=== PATIENT | male | born 1960 | race Caucasian/White ===

== ENCOUNTER → 2017-12-01 | Outpatient (CLI) | payer OTHER ==
[~2017-12-01] MED LIST: ACIDOPHILUS1 EAC4 PO; ANCEF 1GM1 GM/50 M2 IV; ASPIR-TRIN325 MG PO; ASPIRIN325 PO; COLACE100 MG PO; ELIQUIS2.5 MG PO; HYDROCODONE-AP1 EAC6 PO; LASIX 20 MG TAB20 MG PO; OXYCODONE HCL 55 MG PO; OXYCODONE HCL5 MG PO; PERCOCET PO; POTASSIUM20 PO; TRIAMCINOLONE A80 G2 TOP; TYLENOL325 MG PO; XARELTO10 MG PO; [UNRECOGNIZED DRUG - SUPPLY] TOP
[2017-12-01 16:54] LABS: ABSOLUTE LYMPHOCYTES 1.9 thou/uL (0.8-5.3); MCHC 33.2 g/dL (28.0-37.0)
[2017-12-01 16:56] LABS: ABSOLUTE BASOPHILS 0.1 thou/uL (0.0-0.2); ABSOLUTE EOSINOPHILS 0.3 thou/uL (0.0-0.7); ABSOLUTE MONOCYTES 0.7 thou/uL (0.0-1.2); ABSOLUTE NEUTROPHILS 3.9 thou/uL (1.6-8.1); BASOPHILS 1.2 %; EOSINOPHILS 4.9 %; HEMATOCRIT 38.4 % (42.0-52.0); HEMOGLOBIN 12.7 gm/dL (14.0-18.0); LYMPHOCYTES 27.8 %; MCH 28.7 pg (26.0-34.0); MCV 86.5 fL (80.0-100.0); MONOCYTES 9.7 %; MPV 7.9 fl. (7.2-11.1); NUCLEATED RBCS 0 /100WBC; PLATELET COUNT* 232 thou/uL (150-400); POLYS 56.4 %; RBC 4.44 mil/uL (4.50-6.00); RDW-CV 14.8 % (10.5-14.5)
[2017-12-01 17:01] LABS: CALCIUM 8.5 mg/dL (8.5-10.1); CREATININE 0.8 mg/dL (0.6-1.3); POTASSIUM 4.2 mmol/L (3.5-5.1)
--- NOTE | 2017-12-01 17:09 | NUR ---
ARRIVED AMBULATORY WITH WALKER. MADE SELF COMFORTABLE PICC LINE NOTED TO RIGHT UPPER ARM. DRESSING PEELING FROM UPPER RIGHT CORNER BUT STILL OCCLUSIVE. DRESSING CHANGED PER POLICY AND LABS DRAWN PER ORDER. 21 INCH EXTENTION TUBING CHANGED SO PT CAN SELF ADMINISTER HOME ATB. TOLERATED WELL. DENIES QUESTIONS OR NEEDS AT DISCHARGE.
[2017-12-01 18:03] LABS: ESR (SEDRATE) 30 mm/hr (0-20)
== END ==
LOC: M.INFUS 15:58
PROVIDERS: Specialist
DX: T84.53XD Infection and inflammatory reaction due to internal right knee prosthesis, subsequent encounter (principal); X58.XXXD Exposure to other specified factors, subsequent encounter

== ENCOUNTER → 2017-12-07 | Outpatient (CLI) | payer OTHER ==
[2017-12-07 12:49] LABS: ABSOLUTE BASOPHILS 0.1 thou/uL (0.0-0.2); ABSOLUTE EOSINOPHILS 0.2 thou/uL (0.0-0.7); ABSOLUTE MONOCYTES 0.7 thou/uL (0.0-1.2); ABSOLUTE NEUTROPHILS 4.4 thou/uL (1.6-8.1); BASOPHILS 1.1 %; EOSINOPHILS 2.9 %; HEMOGLOBIN 12.8 gm/dL (14.0-18.0); LYMPHOCYTES 27.5 %; MCH 29.2 pg (26.0-34.0); MCHC 33.8 g/dL (28.0-37.0); MCV 86.3 fL (80.0-100.0); MONOCYTES 9.3 %; MPV 7.8 fl. (7.2-11.1); NUCLEATED RBCS 0 /100WBC; PLATELET COUNT* 230 thou/uL (150-400); POLYS 59.2 %; RDW-CV 15.3 % (10.5-14.5); WBC 7.4 thou/uL (4.0-11.0)
[2017-12-07 12:55] LABS: CALCIUM 8.8 mg/dL (8.5-10.1); CREATININE 0.7 mg/dL (0.6-1.3); POTASSIUM 3.8 mmol/L (3.5-5.1)
[2017-12-07 13:51] LABS: ESR (SEDRATE) 32 mm/hr (0-20)
== END ==
LOC: M.INFUS 06:10
PROVIDERS: Specialist
DX: T84.53XD Infection and inflammatory reaction due to internal right knee prosthesis, subsequent encounter (principal); X58.XXXD Exposure to other specified factors, subsequent encounter

== ENCOUNTER → 2017-12-15 | Outpatient (CLI) | payer OTHER ==
[2017-12-15 18:02] LABS: ABSOLUTE EOSINOPHILS 0.2 thou/uL (0.0-0.7); ABSOLUTE LYMPHOCYTES 2.1 thou/uL (0.8-5.3); ABSOLUTE MONOCYTES 0.7 thou/uL (0.0-1.2); ABSOLUTE NEUTROPHILS 2.8 thou/uL (1.6-8.1); BASOPHILS 0.5 %; HEMATOCRIT 40.8 % (42.0-52.0); HEMOGLOBIN 13.6 gm/dL (14.0-18.0); LYMPHOCYTES 35.6 %; MCH 28.7 pg (26.0-34.0); MCHC 33.4 g/dL (28.0-37.0); MCV 86.1 fL (80.0-100.0); MONOCYTES 11.6 %; MPV 7.9 fl. (7.2-11.1); NUCLEATED RBCS 0 /100WBC; PLATELET COUNT* 241 thou/uL (150-400); POLYS 48.3 %; RBC 4.74 mil/uL (4.50-6.00); WBC 5.9 thou/uL (4.0-11.0)
[2017-12-15 18:09] LABS: CALCIUM 8.9 mg/dL (8.5-10.1); CREATININE 0.8 mg/dL (0.6-1.3)
--- NOTE | 2017-12-15 18:10 | NUR ---
PT ARRIVED FOR OUTPT PICC LINE DRESSING CHANGE AND LAB DRAW. ORDERS NOTED. LABS OBTAINED FROM RIGHT AC PICC LINE. DRESSING CHANGED TO PICC LINE. DISMISSED HOME IN GOOD CONDITION, USING WALKER.
[2017-12-15 19:07] LABS: ESR (SEDRATE) 18 mm/hr (0-20)
== END ==
LOC: M.INFUS 06:51
PROVIDERS: Specialist
DX: T84.53XD Infection and inflammatory reaction due to internal right knee prosthesis, subsequent encounter (principal)

== ENCOUNTER → 2017-12-21 | Outpatient (CLI) | payer OTHER ==
[2017-12-21 14:01] LABS: ABSOLUTE EOSINOPHILS 0.1 thou/uL (0.0-0.7); ABSOLUTE LYMPHOCYTES 2.3 thou/uL (0.8-5.3); ABSOLUTE MONOCYTES 0.5 thou/uL (0.0-1.2); ABSOLUTE NEUTROPHILS 3.8 thou/uL (1.6-8.1); BASOPHILS 0.7 %; EOSINOPHILS 1.3 %; HEMOGLOBIN 13.2 gm/dL (14.0-18.0); LYMPHOCYTES 33.9 %; MCH 28.8 pg (26.0-34.0); MCV 87.3 fL (80.0-100.0); MONOCYTES 7.6 %; MPV 7.9 fl. (7.2-11.1); NUCLEATED RBCS 0 /100WBC; PLATELET COUNT* 250 thou/uL (150-400); POLYS 56.5 %; RBC 4.58 mil/uL (4.50-6.00); RDW-CV 14.8 % (10.5-14.5); WBC 6.7 thou/uL (4.0-11.0)
[2017-12-21 14:41] LABS: CALCIUM 8.8 mg/dL (8.5-10.1); CREATININE 0.8 mg/dL (0.6-1.3); POTASSIUM 4.2 mmol/L (3.5-5.1)
[2017-12-21 15:01] LABS: ESR (SEDRATE) 9 mm/hr (0-20)
--- NOTE | 2017-12-21 16:32 | NUR ---
ARRIVED AMBULATORY WITH WALKER. MADE SELF COMFORTABLE IN RECLINER. LABS DRWN FROM PICC PER PROTOCOL. DR. RENEE HERE IN INFUSION TO SEE PT. NEW ORDER RECIEVED TO D/C PICC LINE AND WEEKLY LABS. PT VOICED UNDERSTANDING AND AGREED. LINE REMOVED PER PROTOCOL. POST CARE REVIEWED. DENEIS NEEDS AT DISCHARGE.
--- NOTE | 2017-12-22 10:51 | CON ---
[address] [address] CONSULTATION Name: KOMAL SNOWDEN Room: [facility]#: [id number] Admission: 12/21/17 Attend Phys: Hilton Colin MD Discharge: Date of : 56 Report #: [id number] THIS REPORT FOR: //name// CC: Roderick Colin DATE OF SERVICE: 12/21/2017 ATTENDING PHYSICIAN: Dr. Allen. This is a 57-year-old patient of Dr. Allen. 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 He completed a course of therapy. He has been doing well for the past 3 weeks off antibiotics. He was seen by Dr. Allen in followup who has tentatively scheduled to re-implant the knee mid to latter part of December. At this point, would go ahead and remove the PICC line. He is to call if problems or concerns. <ELECTRONICALLY SIGNED> By: Hilton Colin MD 12/22/17 1051 [id number] [id number] Colin MD /nt
== END ==
LOC: M.INFUS 04:22
PROVIDERS: Specialist
DX: T84.53XD Infection and inflammatory reaction due to internal right knee prosthesis, subsequent encounter (principal)

== ENCOUNTER 2018-01-27 09:02 | Inpatient (IN) | payer OTHER ==
[2018-01-24 16:19] LABS: ABSOLUTE BASOPHILS 0.1 thou/uL (0.0-0.2); ABSOLUTE EOSINOPHILS 0.2 thou/uL (0.0-0.7); ABSOLUTE LYMPHOCYTES 2.1 thou/uL (0.8-5.3); ABSOLUTE MONOCYTES 0.5 thou/uL (0.0-1.2); ABSOLUTE NEUTROPHILS 4.9 thou/uL (1.6-8.1); BASOPHILS 0.9 %; EOSINOPHILS 2.2 %; HEMATOCRIT 42.9 % (42.0-52.0); HEMOGLOBIN 14.6 gm/dL (14.0-18.0); LYMPHOCYTES 27.1 %; MCH 29.3 pg (26.0-34.0); MCHC 33.9 g/dL (28.0-37.0); MCV 86.4 fL (80.0-100.0); MONOCYTES 6.7 %; MPV 7.4 fl. (7.2-11.1); NUCLEATED RBCS 0 /100WBC; PLATELET COUNT* 248 thou/uL (150-400); POLYS 63.1 %; RBC 4.96 mil/uL (4.50-6.00); RDW-CV 15.2 % (10.5-14.5); WBC 7.8 thou/uL (4.0-11.0)
[2018-01-24 16:26] LABS: APTT 25.9 Seconds (25.0-31.3); INR 1.1; PROTIME 10.6 Seconds (9.20-11.50)
[2018-01-24 16:29] LABS: ALBUMIN 3.6 g/dL (3.4-5.0); CALCIUM 8.6 mg/dL (8.5-10.1); CREATININE 0.9 mg/dL (0.6-1.3); POTASSIUM 3.9 mmol/L (3.5-5.1); TOTAL BILIRUBIN 0.4 mg/dL (<0.1-1.0); TOTAL PROTEIN 7.3 g/dL (6.4-8.2)
[2018-01-24 17:22] LABS: ESR (SEDRATE) 7 mm/hr (0-20)
[2018-01-25 02:08] LABS: GLYCOHEMOGLOBIN (HGB A1C) 4.5 % (4.8-5.6)
[~2018-01-27] VITALS: Ht 182.9 cm; Wt 176.0 kg
[2018-01-27 13:30] VITALS: BP 130/74
[2018-01-27 20:00] VITALS: BP 135/60
[2018-01-27 23:21] VITALS: BP 118/61
[2018-01-28 03:34] VITALS: BP 129/65
[2018-01-28 04:23] LABS: HEMATOCRIT 36.5 % (42.0-52.0); HEMOGLOBIN 12.5 gm/dL (14.0-18.0)
[2018-01-28 12:09] VITALS: BP 129/65
[2018-01-28 15:00] VITALS: BP 129/65
[2018-01-28 15:42] VITALS: BP 130/52
[2018-01-28] MEDS ORDERED: ELIQUIS2.5 MG PO (15:59)
[2018-01-28] MEDS ORDERED: COLACE100 MG PO (16:01)
[2018-01-28] MEDS ORDERED: PERCOCET PO (16:08)
[2018-01-28 20:21] VITALS: BP 129/65
--- NOTE | 2018-02-02 09:54 | S ---
[place] [address] SURGICAL PATH RPT PROCEDURE Name: MIKE BHAT Room: [address] IN [facility]#: [id number] Admission: 01/27/18 Date of : 56 Discharge: 01/28/18 Report #: [id number] Path Case #: [id number] PATHOLOGY REPORT COLLECTION DATE: 01/27/2018 RECEIVED DATE: 01/30/2018 SUBMITTING PHYS: Dr. Zay Allen OTHER PHYS: Dr. Cameron Goodwin SPECIMEN(S) RECEIVED: A.Right knee bone and tissue * * * * * * * * * * * * FINAL DIAGNOSIS: Right knee bone and tissue, total knee revision: - Benign bone segments including hematopoietic elements, with evidence of prior surgery including stromal fibrosis and benign fibrovascular connective tissue with foreign body type granulomata entrapping weakly birefringent foreign material. (see comment) COMMENT: Eosinophils average well under 5/hpf in the soft tissues. (ALEXY:mgr; 02/01/2018) PATHOLOGIST: Dung Bain M.D. REPORT ELECTRONICALLY SIGNED BY: Dung Bain M.D. DATE/TIME: 02/02/2018 09:53 * * * * * * * * * * * * GROSS PATHOLOGY: Received in formalin labeled "Mike Bhat, right knee bone and tissue" and consists of 3 irregularly-shaped brown valenzuela osseous tissue fragments ranging in size from 3.0 cm-5 cm and aggregating to 5.0 x 3.0 x 2.0 cm. There is scant fibrous tissue attached to the bone fragments. The possible articular surfaces identified are slightly roughened, nodular, and red to red-brown. The cut surfaces are slightly brittle. Geriatric Care Manager sections are submitted as A1 following decalcification. (RENÉ; 01/31/2018) CLINICAL HISTORY: Right knee degenerative joint disease INITIAL CPT CODE(S): A; 47291, [address] [place] [address] SURGICAL PATH RPT PROCEDURE Name: MIKE BHAT Room: [address] IN [facility].#: [id number] Admission: 01/27/18 Date of : 56 Discharge: 01/28/18 Report #: [id number] Path Case #: [id number] Professional services performed by [facility] at [facility] [address] [place] [address] Technical services performed by [facility] at [address] [place] [address], [facility] [address] [address]. [facility] [address] [place] [address] PHONE: [phone] DIRECTOR: William Pugh M.D. * * * END OF REPORT * * *
--- NOTE | 2018-02-10 07:38 | OP ---
[address] [address] OPERATIVE REPORT Name: KOMAL SNOWDEN Room: [address] IN .R.#: [id number] Admission: 01/27/18 Attend Phys: Gene Cuevas Discharge: 01/28/18 Date of : 56 Report #: [id number] THIS REPORT FOR: //name// CC: Roderick Cleveland DICTATED BY: Wing Ro DATE OF SERVICE: 01/27/2018 PREOPERATIVE DIAGNOSIS: Retained antibiotic spacer, right knee. POSTOPERATIVE DIAGNOSIS: Retained antibiotic spacer, right knee. PROCEDURES: 1. Explantation, right knee articulating antibiotic spacer. 2. Revision right total knee arthroplasty utilizing Guerrero and Nephew revision components. IMPLANTS: A. A size 20 x 160 mm femoral stem. B. DICTATION ENDS HERE. <ELECTRONICALLY SIGNED> By: Terry Larios DO 02/10/18 0738 1831 [id number] Allen DO /nt
--- NOTE | 2018-02-10 07:38 | OP ---
[address] [address] OPERATIVE REPORT Name: KOMAL SNOWDEN Room: [address]#: [id number] Admission: 01/27/18 Attend Phys: Gene Cuevas Discharge: 01/28/18 Date of : 56 Report #: [id number] THIS REPORT FOR: //name// CC: Roderick Cleveland DICTATED BY: Wing Ro DATE OF SERVICE: 01/27/2018 PREOPERATIVE DIAGNOSIS: Right knee retained antibiotic spacer. POSTOPERATIVE DIAGNOSIS: Right knee retained antibiotic spacer. PROCEDURES: 1. Explantation, right knee articulating antibiotic spacer. 2. Revision right total knee arthroplasty utilizing Guerrero and Nephew Legion components. IMPLANTS: A. A 20 x 160 mm femoral stem. B. A 5 mm distal femur augment for the lateral side. C. A 32 mm patellar button, oval. D. A 4 mm Legion offset director industrial. E. A size 7 right Legion revision tibial baseplate. F. A 2 mm offset Legion director industrial. G. A size 8 right Legion Oxinium constrained femoral component. H. A 16 x 160 mm press-fit tibial stem. I. A size 15 mm thickness constrained articular insert. J. Two bags of Justice Palacos bone cement with gentamicin. SURGEON: Zay Allen DO ARMATURE AND ROTOR WINDER: Kieran Ro DO ANESTHESIA: General and local. ESTIMATED BLOOD LOSS: 200 mL ANTIBIOTICS: Ancef 2 g. SPECIMENS: None. DRAINS: [place] [address] OPERATIVE REPORT Name: KOMAL SNOWDEN Room: [address] IN [facility]#: [id number] Admission: 01/27/18 Attend Phys: Gene Cuevas Discharge: 01/28/18 Date of : 56 Report #: [id number] FLUIDS: Crystalloid per anesthesia. COMPLICATIONS: None apparent. CONDITION: Stable, transferred to PACU. DISPOSITION: PACU to Med/Surg. PERTINENT HISTORY AND PHYSICAL: This is a 57-year-old male who had a total knee arthroplasty on the right side, completed in February 2017. He subsequently developed septic arthritis with insertion of antibiotic spacer in September 2017. He presents today for explantation of antibiotic spacer and revision right total knee arthroplasty. We discussed procedure to be performed in great detail including, but not limited to the risks, benefits, potential complications, and alternatives including, but not limited to infection, blood loss, damage to surrounding tissues, damage to blood vessels and nerves, continued pain, worsening pain, numbness, tingling, weakness, paralysis, loss of function, persistent limp, persistent use of assistive device, recurrent infection, need for recurrent explantation, hardware loosening, hardware failure, intraoperative fracture, postoperative fracture, instability, dislocation, bone loss, inability to use the leg, inability to move the leg, complications with anesthesia, thrombus, as well as other imponderables as well as the need for further surgery and he wishes to proceed. DESCRIPTION OF PROCEDURE: After written consent was obtained, the patient was transferred to the operative suite and placed in the supine position on the operative table. Anesthesia was induced via the anesthesia team. A well-padded pneumatic tourniquet was placed on the right thigh. The right lower extremity was sterilely prepped and draped with Hibiclens and ChloraPrep x 2. Timeout was performed. Correct patient, surgical site, procedure to be performed, antibiotics and surgeon were confirmed. Marking pen used to rajat our correct location of incision through his old incision. Incision was made with a 10 blade knife followed by dissection down to superficial tissues. Planes were identified and dissected appropriately for this extensively scarred revision procedure. The capsular layer was identified and developed. A new 10 blade knife was used to make a medial tendon splitting parapatellar arthrotomy. The antibiotic spacer was identified. We performed an extensive synovectomy at that time as well as developed medial and lateral flaps. Osteotomes and mallet were then used to free up the articulating spacer in the usual fashion. It was piecemealed out when the articulating antibiotic spacer was removed from the tibial and femoral side. We examined the bone. Next, we proceeded with the revision total knee arthroplasty after all residual cement was removed. The patella was subluxed laterally during this procedure. The reamers were used to sequentially ream up the appropriate size that was left in the proximal tibia and the cutting block was pinned in place after the appropriate amount of resection was measured. It was secured and the [place] [address] OPERATIVE REPORT Name: ISIKOMAL Simons Room: [address] IN [facility].#: [id number] Admission: 01/27/18 Attend Phys: Gene Cuevas Discharge: 01/28/18 Date of : 56 Report #: [id number] and the proximal tibia cut was made from the proximal aspect of the cutting block. The cutting block was then removed. Next, we sequentially reamed up the femur and the distal femoral cutting block was pinned in place. The freshened up distal femoral cut was made. At this point, we had to take a 5 mm additional cut off the lateral side necessitating a distal femoral augment in that location. Next, the distal femoral 4-in-1 cutting block was placed after it was sized appropriately. It was placed in the appropriate amount of rotation. Using the appropriate referencing, it was pinned in place and the anterior, posterior and chamfer cuts were made in the usual fashion for the freshened up cuts of the femur. All residual bone was removed. The coupling reamer was used to ream through the director industrial in the usual fashion with a 2 mm director industrial to offset in the appropriate location. All the cutting components and intramedullary guide were removed from the femur. Next, the proximal tibia was prepared with the 4 mm offset director industrial with the trial and intramedullary guide used as a guide, and the appropriate location was chosen with using the 4 mm offset director industrial. It was pinned in place and the director industrial reamer was used to ream appropriately. These proximal tibia sizing guides were all removed. The trial components were assembled and impacted into place in the usual fashion. Trial inserts were then inserted sequentially until appropriate stability and balancing was obtained. There was deemed to be some laxity of the lateral structures compared to the medial, so we trialed a constrained spacer and this appeared to resolve this issue. The knee was taken throughout range of motion and found to be stable throughout range of motion. Excellent range of motion was achieved. Next, 2 towel clips were used to stabilize the patella and a freshened up cut was performed in a freehand fashion. It was sized to the above mentioned size and the drill holes were drilled with the patellar clamp. Trial was inserted and excellent patellar tracking was noted over the trials. Next, all trials were removed. The bone ends were thoroughly irrigated in the usual fashion. Two bags of Palacos bone cement with antibiotics were mixed and the above mentioned final components were cemented into place. All residual cement was removed. The knee was taken out to full extension to allow the cement to harden. When it did harden, the trial spacer was again inserted. It was found to track nicely with the 15 mm constrained trial spacer. The gaps appeared to be symmetric and there was no residual laxity with this constrained liner in place. The trial was removed and the final 15 mm constrained liner was impacted into place. Excellent seating was noted. Again, the knee was taken throughout range of motion in identical stability and tracking was noted and excellent tracking in the patella also noted. At this point, the procedure was deemed to be complete. The wound was again thoroughly irrigated. One medium Hemovac drain was inserted superolaterally. The capsular layer was closed with #1 Vicryl suture in [id number] interrupted technique after injection of the local anesthetic cocktail in the capsular layer. When the capsule layer had been closed, the wound was again thoroughly irrigated and the subcutaneous tissues were closed with a 2-0 Vicryl suture in interrupted buried knot technique and closure of the skin with a running 3-0 Stratafix suture followed by Dermabond skin glue. Sterile dressings were applied. The anesthesia [place] [address] OPERATIVE REPORT Name: KOMAL SNOWDEN Room: [address] IN [facility].#: [id number] Admission: 01/27/18 Attend Phys: Gene Cuevas Discharge: 01/28/18 Date of : 56 Report #: [id number] anesthesia team. The patient was transferred back to the transfer cart and transferred to the postanesthesia care unit in stable condition. The patient appeared to tolerate this procedure well. There were no obvious complications apparent. Needle and sponge counts correct per the operating room team. DISPOSITION: Weightbear as tolerated, right lower extremity. Discharge to the floor once stable per anesthesia. He will be admitted to medicine service. <ELECTRONICALLY SIGNED> By: Terry Larios DO 02/10/18 0738 1846 1917Zay Allen DO /christa
== END 2018-01-28 16:15 | disposition home health service (06) | DRG 467 ==
LOC: M.PRE 09:02 → M.TBA-ER 12:23 → M.TBA 13:55 → M.PRE 14:27 → M.ORTHSURG 19:56
PROVIDERS: Orthopaedic Surgery; ADMIT Internal Medicine
DX: T84.53XA Infection and inflammatory reaction due to internal right knee prosthesis, initial encounter (principal); Z68.43 Body mass index [BMI] 50.0-59.9, adult; Y83.8 Other surgical procedures as the cause of abnormal reaction of the patient, or of later complication, without mention of misadventure at the time of the procedure; E66.9 Obesity, unspecified; M06.9 Rheumatoid arthritis, unspecified; M19.90 Unspecified osteoarthritis, unspecified site; Y92.89 Other specified places as the place of occurrence of the external cause; Z79.899 Other long term (current) drug therapy

== ENCOUNTER → 2018-09-14 | Outpatient (CLI) | payer OTHER | LOC: M.RAD 16:12 | DX: E66.01 Morbid (severe) obesity due to excess calories (principal); M19.90 Unspecified osteoarthritis, unspecified site; G47.33 Obstructive sleep apnea (adult) (pediatric) ==

== ENCOUNTER → 2018-11-07 | Outpatient (CLI) | payer OTHER | LOC: M.RAD 11:51 | DX: M47.816 Spondylosis without myelopathy or radiculopathy, lumbar region (principal) ==

== ENCOUNTER → 2019-08-30 | Outpatient (CLI) | payer OTHER | LOC: M.RAD 16:27 | DX: R53.82 Chronic fatigue, unspecified (principal); G47.33 Obstructive sleep apnea (adult) (pediatric); M19.90 Unspecified osteoarthritis, unspecified site; E66.01 Morbid (severe) obesity due to excess calories ==